=== PATIENT | female | born 1995 | race Caucasian/White ===

== ENCOUNTER 2017-07-17 23:16 | Emergency (ER) | payer OTHER ==
[~2017-07-17] VITALS: Ht 157.5 cm; Wt 120.2 kg
[2017-07-17] MEDS ORDERED: METF500 PO (23:35)
[2017-07-17] MEDS ORDERED: CLON.5 PO (23:35)
[2017-07-17] MEDS ORDERED: LAMO25 PO (23:35)
[2017-07-18] MEDS ORDERED: BENZ100A PO (00:05)
== END 2017-07-18 00:20 | disposition home or self-care (01) ==
LOC: ER 23:16
DX: J06.9 Acute upper respiratory infection, unspecified (principal); Z88.2 Allergy status to sulfonamides; Z79.899 Other long term (current) drug therapy; Z79.84 Long term (current) use of oral hypoglycemic drugs; Z86.19 Personal history of other infectious and parasitic diseases; Z87.891 Personal history of nicotine dependence
CPT/HCPCS: 94640; 99283

== ENCOUNTER → 2017-07-19 | Outpatient (CLI) | payer OTHER ==
[~2017-07-19] MED LIST: BENZ100A PO; CLON.5 PO; LAMO25 PO; METF500 PO
[2017-07-19 19:23] LABS: Specimen Source CERVIX
[2017-07-20 08:49] LABS: Source Cervix
[2017-07-22 12:30] LABS: HPV Genotype 16 Not Detected (NOTDET); HPV Genotype 18 Not Detected (NOTDET)
[2017-07-24 11:49] LABS: HPV High Risk Other Detected (NOTDET)
== END ==
LOC: LAB SHORT 17:31 → OLS 17:31
PROVIDERS: Nurse Practitioner Women's Health
DX: Z12.4 Encounter for screening for malignant neoplasm of cervix (principal); Z11.3 Encounter for screening for infections with a predominantly sexual mode of transmission; Z91.89 Other specified personal risk factors, not elsewhere classified
CPT/HCPCS: 87491; 87591; 87624; G0123

== ENCOUNTER 2017-08-12 20:42 | Observation (INO) | payer OTHER ==
[~2017-08-12] VITALS: Ht 157.5 cm; Wt 115.5 kg
[2017-08-12 21:06] LABS: BASOPHILS ABSOLUTE AUTO 0.04 K/mm3 (0.00-0.23); BASOPHILS PERCENT AUTO 1 % (0-2); EOSINOPHILS ABSOLUTE AUTO 0.05 K/mm3 (0.00-0.68); EOSINOPHILS PERCENT AUTO 1 % (0-6); Hematocrit 38.5 % (33.0-51.0); Hemoglobin 12.6 g/dL (11.5-16.0); IMMATURE GRAN ABSOLUTE AUTO 0.01 K/mm3 (0.00-0.10); IMMATURE GRAN PERCENT AUTO 0 % (0-1); LYMPHOCYTES ABSOLUTE AUTO 2.46 K/mm3 (0.84-5.20); LYMPHOCYTES PERCENT AUTO 37 % (21-46); MONOCYTES ABSOLUTE AUTO 0.51 K/mm3 (0.16-1.47); MONOCYTES PERCENT AUTO 8 % (4-13); Mean Corpuscular HGB 26.9 pg (26.0-34.0); Mean Corpuscular HGB Conc 32.7 g/dL (31.5-36.5); Mean Corpuscular Volume 82 fL (80-100); Mean Platelet Volume 9.4 fL (9.1-12.4); NEUTROPHILS ABSOLUTE AUTO 3.53 K/mm3 (1.96-9.15); NEUTROPHILS PERCENT AUTO 53 % (41-73); Platelet Count 326 K/mm3 (150-400); RDW Coefficient Variation 13.2 % (11.7-14.2); RDW Standard Deviation 39.6 fL (35.1-46.3); Red Blood Cell Count 4.68 M/mm3 (3.80-5.20)
[2017-08-12 21:25] LABS: Alanine Aminotransfer (ALT/SGP 88 U/L (12-78); Albumin, Blood 4.4 g/dL (3.4-5.0); Albumin/Globulin Ratio 1.1 (0.8-1.8); Alk Phos 101 U/L (50-136); Anion Gap 9 mmol/L (6-16); Aspartate Aminotrans (AST/SGOT 49 U/L (12-37); Beta HCG, Quantitative, Serum <1 mIU/mL (0-3); Bilirubin, Total 0.3 mg/dL (0.1-1.0); Blood Urea Nitrogen 10 mg/dL (8-24); Bun/Creatinine Ratio 13.2 (12.0-20.0); CO2, Blood 25 mmol/L (21-32); Calcium, Blood 9.1 mg/dL (8.5-10.1); Chloride, Blood 104 mmol/L (98-108); Creatinine, Blood 0.76 mg/dL (0.40-1.00); Ethanol (Alcohol), Blood, Med <3 mg/dL; Globulin, Blood 3.9 g/dL (2.2-4.0); Glomerular Filtration Rate >60 (60-); Glucose, Blood 105 mg/dL (70-99); Potassium, Blood 3.4 mmol/L (3.5-5.5); Salicylate <1.7 mg/dL (2.8-20.0); Sodium, Blood 138 mmol/L (136-145); Total Protein, Blood 8.3 g/dL (6.4-8.2)
[2017-08-12 21:28] LABS: Acetaminophen, Random <2.0 ug/mL (10.0-30.0); Thyroid Stimulating Hormone 0.561 uIU/mL (0.360-4.800)
[2017-08-12 22:40] LABS: Base Excess Venous -1.3 mmol/L; Bicarbonate Venous 23.3 mmol/L (24.0-30.0); PCO2 Venous 42.5 mmHg (38-42); PO2 Venous 79.9 mmHg (38-42); pH Blood Venous 7.36 (7.34-7.37)
[2017-08-12 23:03] LABS: Source, Urine Catheter
[2017-08-12 23:08] LABS: Bilirubin, Urine Neg (Neg); Blood, Urine Neg (Neg); Glucose Qualitative, Urine Neg (Neg); Ketones, Urine Neg (Neg); Leukocyte Esterase, Urine 1+ (Neg); Nitrite, Urine Neg (Neg); Protein, Urine Neg (Neg); Urobilinogen, Urine NORM (Normal); pH, Urine 6.5 (5.0-8.0)
[2017-08-12 23:10] LABS: Appearance, Urine Clear (Clear); Color, Urine Pale Yellow (P-Yellow)
[2017-08-12 23:19] LABS: Bacteria Rare /hpf; Red Blood Cells, Urine Not Seen /hpf (0-2); Squamous Epithelial Cells Few /hpf (Few); White Blood Cells, Urine 0-2 /hpf (0-5)
[2017-08-12 23:20] LABS: U Amphetamine Screen DETECTED; U Barbituate Screen Not Detected; U Benzodiazapine Screen Not Detected; U Buprenorphine Screen Not Detected; U Cannabinoids Screen Not Detected; U Cocaine Screen Not Detected; U Methadone Screen Not Detected; U Methamphetamine Screen DETECTED; U Opiates Screen Not Detected; U Oxycodone Screen Not Detected; U Phencyclidine Screen Not Detected; U Propoxyphene Screen Not Detected
[2017-08-14 04:10] LABS: BASOPHILS ABSOLUTE AUTO 0.03 K/mm3 (0.00-0.23); BASOPHILS PERCENT AUTO 1 % (0-2); EOSINOPHILS ABSOLUTE AUTO 0.11 K/mm3 (0.00-0.68); EOSINOPHILS PERCENT AUTO 2 % (0-6); Hematocrit 34.3 % (33.0-51.0); IMMATURE GRAN ABSOLUTE AUTO 0.01 K/mm3 (0.00-0.10); IMMATURE GRAN PERCENT AUTO 0 % (0-1); LYMPHOCYTES ABSOLUTE AUTO 3.03 K/mm3 (0.84-5.20); LYMPHOCYTES PERCENT AUTO 52 % (21-46); MONOCYTES ABSOLUTE AUTO 0.41 K/mm3 (0.16-1.47); MONOCYTES PERCENT AUTO 7 % (4-13); Mean Corpuscular HGB 26.8 pg (26.0-34.0); Mean Corpuscular HGB Conc 32.1 g/dL (31.5-36.5); Mean Corpuscular Volume 84 fL (80-100); Mean Platelet Volume 9.5 fL (9.1-12.4); NEUTROPHILS ABSOLUTE AUTO 2.24 K/mm3 (1.96-9.15); NEUTROPHILS PERCENT AUTO 38 % (41-73); Platelet Count 263 K/mm3 (150-400); RDW Coefficient Variation 13.5 % (11.7-14.2); RDW Standard Deviation 40.8 fL (35.1-46.3); Red Blood Cell Count 4.11 M/mm3 (3.80-5.20); White Blood Cell Count 5.83 K/mm3 (4.00-11.30)
[2017-08-14 04:35] LABS: Alanine Aminotransfer (ALT/SGP 55 U/L (12-78); Albumin, Blood 3.2 g/dL (3.4-5.0); Alk Phos 70 U/L (50-136); Anion Gap 6 mmol/L (6-16); Aspartate Aminotrans (AST/SGOT 20 U/L (12-37); Bilirubin, Direct <0.1 mg/dL (0.0-0.3); Bilirubin, Indirect Unable to Calculate mg/dL (0.1-0.7); Bilirubin, Total 0.3 mg/dL (0.1-1.0); Blood Urea Nitrogen 10 mg/dL (8-24); Bun/Creatinine Ratio 12.7 (12.0-20.0); CO2, Blood 25 mmol/L (21-32); Calcium, Blood 8.3 mg/dL (8.5-10.1); Chloride, Blood 111 mmol/L (98-108); Creatinine, Blood 0.79 mg/dL (0.40-1.00); Globulin, Blood 3.3 g/dL (2.2-4.0); Glomerular Filtration Rate >60 (60-); Glucose, Blood 102 mg/dL (70-99); Potassium, Blood 3.5 mmol/L (3.5-5.5); Sodium, Blood 142 mmol/L (136-145); Total Protein, Blood 6.5 g/dL (6.4-8.2)
[2017-08-14 07:40] LABS: Source, Urine Clean Catch
[2017-08-14 07:44] LABS: Bilirubin, Urine Neg (Neg); Blood, Urine 1+ (Neg); Glucose Qualitative, Urine Neg (Neg); Ketones, Urine Neg (Neg); Leukocyte Esterase, Urine 1+ (Neg); Nitrite, Urine Neg (Neg); Protein, Urine Neg (Neg); Specific Gravity, Urine 1.025 (1.003-1.022); Urobilinogen, Urine NORM (Normal)
[2017-08-14 07:49] LABS: Appearance, Urine Clear (Clear); Color, Urine Yellow (P-Yellow)
[2017-08-14 07:51] LABS: Red Blood Cells, Urine 0-2 /hpf (0-2); White Blood Cells, Urine 0-2 /hpf (0-5)
[2017-08-14 07:52] LABS: Bacteria Not Seen /hpf; Mucus Light (0-Heavy); Squamous Epithelial Cells Rare /hpf (Few)
== END 2017-08-14 20:09 | disposition home or self-care (01) ==
LOC: ER 20:42 → ERHOLD 20:43 → ICUE 23:58 → MEDS 08-14 17:21
PROVIDERS: Emergency Medicine; Family Medicine
DX: T42.6X2A Poisoning by other antiepileptic and sedative-hypnotic drugs, intentional self-harm, initial encounter (principal); G93.40 Encephalopathy, unspecified; F15.10 Other stimulant abuse, uncomplicated; E66.01 Morbid (severe) obesity due to excess calories; R33.9 Retention of urine, unspecified; R41.82 Altered mental status, unspecified; Z88.2 Allergy status to sulfonamides; Z79.84 Long term (current) use of oral hypoglycemic drugs; Z68.42 Body mass index [BMI] 45.0-49.9, adult; Z79.01 Long term (current) use of anticoagulants
CPT/HCPCS: 36415; 51702; 80048; 80053; 80076; 81001; 82803; 84443; 84702; 85025; 87086; 93005; 93010; 96360; 96361; 96372; 99285; G0378; G0480; J1650; J7030; P9612

== ENCOUNTER → 2017-09-24 | Outpatient (CLI) | payer OTHER ==
[2017-09-24 16:09] LABS: BASOPHILS ABSOLUTE AUTO 0.02 K/mm3 (0.00-0.23); BASOPHILS PERCENT AUTO 0 % (0-2); EOSINOPHILS ABSOLUTE AUTO 0.08 K/mm3 (0.00-0.68); EOSINOPHILS PERCENT AUTO 1 % (0-6); Hemoglobin 12.3 g/dL (11.5-16.0); IMMATURE GRAN ABSOLUTE AUTO 0.01 K/mm3 (0.00-0.10); IMMATURE GRAN PERCENT AUTO 0 % (0-1); LYMPHOCYTES ABSOLUTE AUTO 2.94 K/mm3 (0.84-5.20); LYMPHOCYTES PERCENT AUTO 40 % (21-46); MONOCYTES PERCENT AUTO 7 % (4-13); Mean Corpuscular HGB 26.6 pg (26.0-34.0); Mean Corpuscular HGB Conc 32.4 g/dL (31.5-36.5); Mean Corpuscular Volume 82 fL (80-100); Mean Platelet Volume 9.5 fL (9.1-12.4); NEUTROPHILS ABSOLUTE AUTO 3.74 K/mm3 (1.96-9.15); NEUTROPHILS PERCENT AUTO 51 % (41-73); Platelet Count 288 K/mm3 (150-400); RDW Coefficient Variation 14.4 % (11.7-14.2); RDW Standard Deviation 42.4 fL (35.1-46.3); Red Blood Cell Count 4.62 M/mm3 (3.80-5.20); White Blood Cell Count 7.29 K/mm3 (4.00-11.30)
[2017-09-24 16:18] LABS: Alanine Aminotransfer (ALT/SGP 23 U/L (12-78); Albumin, Blood 3.9 g/dL (3.4-5.0); Alk Phos 79 U/L (40-126); Anion Gap 7 mmol/L (6-16); Aspartate Aminotrans (AST/SGOT 14 U/L (12-37); Bilirubin, Total 0.2 mg/dL (0.1-1.0); Blood Urea Nitrogen 16 mg/dL (8-24); Bun/Creatinine Ratio 16.3 (12.0-20.0); CO2, Blood 28 mmol/L (21-32); Chloride, Blood 103 mmol/L (98-108); Creatinine, Blood 0.98 mg/dL (0.40-1.00); Glomerular Filtration Rate >60 (60-); Glucose, Blood 85 mg/dL (70-99); Potassium, Blood 4.2 mmol/L (3.5-5.5); Sodium, Blood 138 mmol/L (136-145); Total Protein, Blood 7.9 g/dL (6.4-8.2)
== END ==
LOC: LAB SHORT 16:04 → LAB EV 16:04
PROVIDERS: Physician Assistant Surgical
DX: R10.9 Unspecified abdominal pain (principal)
CPT/HCPCS: 80053; 85025

== ENCOUNTER → 2017-10-07 | Outpatient (CLI) | payer OTHER ==
[2017-10-08 11:03] LABS: Candida species (DNA Probe) Negative (NEGATIVE); G. vaginalis (DNA Probe) Positive (NEGATIVE); T. vaginalis (DNA Probe) Negative (NEGATIVE)
== END ==
LOC: LAB SHORT 15:26 → OLS 15:26
PROVIDERS: Nurse Practitioner Women's Health
DX: N89.8 Other specified noninflammatory disorders of vagina (principal)
CPT/HCPCS: 87070; 87205; 87480; 87510; 87660

== ENCOUNTER → 2018-04-29 | Outpatient (CLI) | payer OTHER ==
[2018-04-29 12:48] LABS: Source, Urine Clean Catch
[2018-04-29 13:01] LABS: Bilirubin, Urine Neg (Neg); Blood, Urine Neg (Neg); Glucose Qualitative, Urine Neg (Neg); Ketones, Urine Neg (Neg); Leukocyte Esterase, Urine 1+ (Neg); Nitrite, Urine Neg (Neg); Protein, Urine 1+ (Neg); Specific Gravity, Urine 1.015 (1.003-1.022); Urobilinogen, Urine NORM (Normal)
[2018-04-29 13:33] LABS: Color, Urine Yellow (P-Yellow)
[2018-04-29 13:36] LABS: Appearance, Urine Hazy (Clear); Bacteria Few /hpf; Red Blood Cells, Urine 0-2 /hpf (0-2); Squamous Epithelial Cells Few /hpf (Few)
== END | disposition home or self-care (01) ==
LOC: LAB SHORT 12:47 → LAB 12:47
PROVIDERS: Obstetrics & Gynecology Gynecology
DX: R30.0 Dysuria (principal)
CPT/HCPCS: 81001; 87086

== ENCOUNTER 2018-06-22 03:42 | Emergency (ER) | payer OTHER ==
[~2018-06-22] VITALS: Ht 157.5 cm; Wt 104.3 kg
[2018-06-22] MEDS ORDERED: TRAZ50 PO (04:05)
[2018-06-22 04:25] LABS: BASOPHILS ABSOLUTE AUTO 0.03 K/mm3 (0.00-0.23); BASOPHILS PERCENT AUTO 0 % (0-2); EOSINOPHILS ABSOLUTE AUTO 0.01 K/mm3 (0.00-0.68); EOSINOPHILS PERCENT AUTO 0 % (0-6); Hematocrit 38.3 % (33.0-51.0); Hemoglobin 12.9 g/dL (11.5-16.0); IMMATURE GRAN ABSOLUTE AUTO 0.02 K/mm3 (0.00-0.10); IMMATURE GRAN PERCENT AUTO 0 % (0-1); LYMPHOCYTES ABSOLUTE AUTO 1.41 K/mm3 (0.84-5.20); LYMPHOCYTES PERCENT AUTO 17 % (21-46); MONOCYTES ABSOLUTE AUTO 0.26 K/mm3 (0.16-1.47); MONOCYTES PERCENT AUTO 3 % (4-13); Mean Corpuscular HGB 29.3 pg (26.0-34.0); Mean Corpuscular HGB Conc 33.7 g/dL (31.5-36.5); Mean Corpuscular Volume 87 fL (80-100); Mean Platelet Volume 9.2 fL (9.1-12.4); NEUTROPHILS ABSOLUTE AUTO 6.52 K/mm3 (1.96-9.15); NEUTROPHILS PERCENT AUTO 79 % (41-73); Platelet Count 258 K/mm3 (150-400); RDW Coefficient Variation 12.7 % (11.7-14.2); RDW Standard Deviation 40.1 fL (35.1-46.3); Red Blood Cell Count 4.41 M/mm3 (3.80-5.20); White Blood Cell Count 8.25 K/mm3 (4.00-11.30)
[2018-06-22 04:38] LABS: Alanine Aminotransfer (ALT/SGP 22 U/L (12-78); Alk Phos 61 U/L (50-136); Anion Gap 10 mmol/L (6-16); Aspartate Aminotrans (AST/SGOT 14 U/L (12-37); Bilirubin, Total 0.4 mg/dL (0.1-1.0); Blood Urea Nitrogen 13 mg/dL (8-24); Bun/Creatinine Ratio 18.7 (12.0-20.0); CO2, Blood 25 mmol/L (21-32); Calcium, Blood 9.1 mg/dL (8.5-10.1); Chloride, Blood 103 mmol/L (98-108); Glomerular Filtration Rate >60 (60-); Glucose, Blood 143 mg/dL (70-99); Potassium, Blood 3.4 mmol/L (3.5-5.5); Sodium, Blood 138 mmol/L (136-145)
[2018-06-22 05:47] LABS: Source, Urine Clean Catch
[2018-06-22 05:53] LABS: Bilirubin, Urine Neg (Neg); Blood, Urine Neg (Neg); Glucose Qualitative, Urine Neg (Neg); Ketones, Urine Neg (Neg); Leukocyte Esterase, Urine Neg (Neg); Nitrite, Urine Neg (Neg); Protein, Urine Neg (Neg); Urobilinogen, Urine NORM (Normal); pH, Urine 6.5 (5.0-8.0)
[2018-06-22 06:00] LABS: Appearance, Urine Clear (Clear); Color, Urine Yellow (P-Yellow)
[2018-06-25] MEDS ORDERED: CHLO25B PO (14:02)
[2018-06-25] MEDS ORDERED: METF500C PO (14:03)
[2018-06-25] MEDS ORDERED: Adipex-P37.5 M1 PO (14:03)
[2018-06-25] MEDS ORDERED: PRAZ2 PO (14:04)
[2018-06-25] MEDS ORDERED: ATOM40 PO (14:04)
[2018-06-25] MEDS ORDERED: Prazosin HCl2 MG PO (14:05)
[2018-06-25] MEDS ORDERED: IRON18 MG PO (14:07)
[2018-06-25] MEDS ORDERED: LATUDA20 MG PO (14:07)
[2018-06-26] MEDS ORDERED: HYDR1TAB94 PO (08:06)
[2018-06-26] MEDS ORDERED: LATUDA20 MG PO (08:07)
== END 2018-06-22 06:37 | disposition home or self-care (01) ==
LOC: ER 03:42
PROVIDERS: Emergency Medicine
DX: R10.84 Generalized abdominal pain (principal); Z88.2 Allergy status to sulfonamides; Z79.899 Other long term (current) drug therapy; Z87.891 Personal history of nicotine dependence
CPT/HCPCS: 36415; 74176; 80053; 81003; 83690; 85025; 96361; 96374; 96375; 99284-25; J1885; J2405; J7030

== ENCOUNTER → 2018-07-19 | Outpatient (CLI) | payer OTHER ==
[~2018-07-19] MED LIST changes: +ATOM40 PO; +Adipex-P37.5 M1 PO; +CHLO25B PO; +HYDR1TAB94 PO; +IRON18 MG PO; +LATUDA20 MG PO; +METF500C PO; +PRAZ2 PO; +Prazosin HCl2 MG PO; +TRAZ50 PO
== END | disposition home or self-care (01) ==
LOC: LAB SHORT 18:25 → LAB 18:25
DX: N89.8 Other specified noninflammatory disorders of vagina (principal)
CPT/HCPCS: 87070; 87205

== ENCOUNTER → 2018-10-31 | Outpatient (CLI) | payer OTHER ==
[2018-11-03 01:08] LABS: CHLAMYDIA TRACHOMATIS, NAA Negative (Negative); NEISSERIA GONORRHOEAE, NAA Negative (Negative)
== END | disposition home or self-care (01) ==
LOC: LAB 17:30 → LAB SHORT 17:30
PROVIDERS: Nurse Practitioner Women's Health
DX: N89.8 Other specified noninflammatory disorders of vagina (principal); Z20.2 Contact with and (suspected) exposure to infections with a predominantly sexual mode of transmission
CPT/HCPCS: 87070; 87205; 87491; 87591

== ENCOUNTER 2019-04-16 16:37 | Emergency (ER) | payer OTHER ==
[~2019-04-16] VITALS: Ht 157.5 cm; Wt 96.2 kg
[~2019-04-16 16:37] MED LIST changes: +OXCA150 PO
[2019-04-16 17:20] LABS: Source, Urine Clean Catch
[2019-04-16 17:26] LABS: Appearance, Urine Hazy (Clear); Bilirubin, Urine Neg (Neg); Blood, Urine 1+ (Neg); Color, Urine Yellow (P-Yellow); Glucose Qualitative, Urine Neg (Neg); Ketones, Urine Neg (Neg); Leukocyte Esterase, Urine 2+ (Neg); Nitrite, Urine Neg (Neg); Protein, Urine Neg (Neg); Urobilinogen, Urine NORM (Normal)
[2019-04-16 17:38] LABS: Amorphous Light (0-Heavy); Bacteria Mod /hpf; Red Blood Cells, Urine 0-2 /hpf (0-2); Squamous Epithelial Cells Mod /hpf (Few)
[2019-04-16 18:46] LABS: BASOPHILS ABSOLUTE AUTO 0.01 K/mm3 (0.00-0.23); BASOPHILS PERCENT AUTO 0 % (0-2); EOSINOPHILS ABSOLUTE AUTO 0.02 K/mm3 (0.00-0.68); EOSINOPHILS PERCENT AUTO 0 % (0-6); Hematocrit 33.7 % (33.0-51.0); IMMATURE GRAN ABSOLUTE AUTO 0.02 K/mm3 (0.00-0.10); IMMATURE GRAN PERCENT AUTO 0 % (0-1); LYMPHOCYTES ABSOLUTE AUTO 2.77 K/mm3 (0.84-5.20); LYMPHOCYTES PERCENT AUTO 37 % (21-46); MONOCYTES ABSOLUTE AUTO 0.57 K/mm3 (0.16-1.47); MONOCYTES PERCENT AUTO 8 % (4-13); Mean Corpuscular HGB Conc 32.6 g/dL (31.5-36.5); Mean Platelet Volume 9.6 fL (9.1-12.4); NEUTROPHILS ABSOLUTE AUTO 4.04 K/mm3 (1.96-9.15); NEUTROPHILS PERCENT AUTO 54 % (41-73); Platelet Count 232 K/mm3 (150-400); RDW Coefficient Variation 12.2 % (11.7-14.2); RDW Standard Deviation 40.5 fL (35.1-46.3); Red Blood Cell Count 3.67 M/mm3 (3.80-5.20); White Blood Cell Count 7.43 K/mm3 (4.00-11.30)
[2019-04-16 18:49] LABS: Mean Corpuscular Volume 92 fL (80-100)
[2019-04-16 19:08] LABS: Anion Gap 4 mmol/L (6-16); Blood Urea Nitrogen 12 mg/dL (8-24); Bun/Creatinine Ratio 21.3 (12.0-20.0); CO2, Blood 28 mmol/L (21-32); Calcium, Blood 8.7 mg/dL (8.5-10.1); Chloride, Blood 105 mmol/L (98-108); Creatinine, Blood 0.56 mg/dL (0.40-1.00); Glomerular Filtration Rate >60 (60-); Glucose, Blood 90 mg/dL (70-99); Potassium, Blood 3.5 mmol/L (3.5-5.5); Sodium, Blood 137 mmol/L (136-145)
[2019-04-16 19:22] LABS: Beta HCG, Quantitative, Serum 25977 mIU/mL (0-3)
[2019-04-16] MEDS ORDERED: Oxcarbazepine300 MG PO (19:44)
== END 2019-04-16 19:57 | disposition home or self-care (01) ==
LOC: ER 16:37
PROVIDERS: Emergency Medicine; Physician Assistant
DX: O99.89 Other specified diseases and conditions complicating pregnancy, childbirth and the puerperium (principal); R10.31 Right lower quadrant pain; Z88.2 Allergy status to sulfonamides; Z87.891 Personal history of nicotine dependence; Z3A.01 Less than 8 weeks gestation of pregnancy
CPT/HCPCS: 36415; 76801; 76817; 80048; 81001; 81025; 84702; 85025; 87086; 99284-25

== ENCOUNTER → 2019-05-04 | Outpatient (CLI) | payer OTHER ==
[~2019-05-04] MED LIST changes: +Oxcarbazepine300 MG PO
[2019-05-04 13:53] LABS: Bilirubin, Urine Neg (Neg); Blood, Urine Neg (Neg); Glucose Qualitative, Urine Neg (Neg); Ketones, Urine Neg (Neg); Leukocyte Esterase, Urine Neg (Neg); Nitrite, Urine Neg (Neg); Protein, Urine Neg (Neg); Specific Gravity, Urine 1.015 (1.003-1.022); Urobilinogen, Urine NORM (Normal)
[2019-05-04 13:59] LABS: Color, Urine Yellow (P-Yellow)
[2019-05-04 14:00] LABS: Appearance, Urine Clear (Clear)
[2019-05-04 14:07] LABS: U Amphetamine Screen Not Detected; U Barbituate Screen Not Detected; U Benzodiazapine Screen Not Detected; U Cannabinoids Screen Not Detected; U Cocaine Screen Not Detected; U Methadone Screen Not Detected; U Methamphetamine Screen Not Detected; U Opiates Screen Not Detected; U Phencyclidine Screen Not Detected
[2019-05-04 14:08] LABS: U Buprenorphine Screen DETECTED; U Oxycodone Screen Not Detected; U Propoxyphene Screen Not Detected
[2019-05-16 01:06] LABS: AMITRIPTYLINE Positive (.); AMITRIPTYLINE CONF 208 ng/mL (Cutoff=100); CLOMIPRAMINE Negative (Cutoff=100); CYCLOBENZAPRINE Negative (Cutoff=100); DESIPRAMINE Negative (Cutoff=100); DOXEPIN Negative (Cutoff=100); IMIPRAMINE Negative (Cutoff=100); NORDOXEPIN Negative (Cutoff=100); NORTRIPTYLINE Negative (Cutoff=100); PROTRIPTYLINE Negative (Cutoff=100); TRICYCLIC ANTIDEP Positive ng/mL (Cutoff=100); TRIMIPRAMINE Negative (Cutoff=100)
== END | disposition home or self-care (01) ==
LOC: LAB SHORT 10:10 → LAB 10:10
PROVIDERS: Obstetrics & Gynecology
DX: Z34.81 Encounter for supervision of other normal pregnancy, first trimester (principal)
CPT/HCPCS: 81003; 87086; G0480; G0481

== ENCOUNTER → 2019-05-16 | Outpatient (CLI) | payer OTHER ==
[2019-05-19 02:06] LABS: CHLAMYDIA TRACHOMATIS, NAA Negative (Negative); NEISSERIA GONORRHOEAE, NAA Negative (Negative)
== END | disposition home or self-care (01) ==
LOC: LAB SHORT 11:15 → LAB 11:15
PROVIDERS: Obstetrics & Gynecology
DX: Z34.01 Encounter for supervision of normal first pregnancy, first trimester (principal)
CPT/HCPCS: 87491; 87591

== ENCOUNTER 2019-06-22 09:38 | Emergency (ER) | payer OTHER ==
[~2019-06-22] VITALS: Ht 157.5 cm; Wt 104.3 kg
[2019-06-22 11:11] LABS: Source, Urine Clean Catch
[2019-06-22 11:16] LABS: Bilirubin, Urine Neg (Neg); Blood, Urine Neg (Neg); Glucose Qualitative, Urine Neg (Neg); Ketones, Urine Neg (Neg); Leukocyte Esterase, Urine 1+ (Neg); Nitrite, Urine Neg (Neg); Protein, Urine Neg (Neg); Specific Gravity, Urine 1.015 (1.003-1.022); Urobilinogen, Urine NORM (Normal); pH, Urine 6.5 (5.0-8.0)
[2019-06-22 11:17] LABS: BASOPHILS ABSOLUTE AUTO 0.01 K/mm3 (0.00-0.23); BASOPHILS PERCENT AUTO 0 % (0-2); EOSINOPHILS ABSOLUTE AUTO 0.03 K/mm3 (0.00-0.68); EOSINOPHILS PERCENT AUTO 0 % (0-6); Hemoglobin 13.2 g/dL (11.5-16.0); IMMATURE GRAN ABSOLUTE AUTO 0.03 K/mm3 (0.00-0.10); IMMATURE GRAN PERCENT AUTO 0 % (0-1); LYMPHOCYTES ABSOLUTE AUTO 0.71 K/mm3 (0.84-5.20); LYMPHOCYTES PERCENT AUTO 7 % (21-46); MONOCYTES ABSOLUTE AUTO 0.32 K/mm3 (0.16-1.47); MONOCYTES PERCENT AUTO 3 % (4-13); Mean Corpuscular HGB 29.6 pg (26.0-34.0); Mean Corpuscular HGB Conc 33.8 g/dL (31.5-36.5); Mean Corpuscular Volume 87 fL (80-100); Mean Platelet Volume 9.4 fL (9.1-12.4); NEUTROPHILS ABSOLUTE AUTO 9.61 K/mm3 (1.96-9.15); NEUTROPHILS PERCENT AUTO 90 % (41-73); Platelet Count 221 K/mm3 (150-400); RDW Coefficient Variation 12.2 % (11.7-14.2); RDW Standard Deviation 39.2 fL (35.1-46.3); Red Blood Cell Count 4.46 M/mm3 (3.80-5.20); White Blood Cell Count 10.71 K/mm3 (4.00-11.30)
[2019-06-22 11:33] LABS: Appearance, Urine Hazy (Clear); Bacteria Rare /hpf; Color, Urine Yellow (P-Yellow); Red Blood Cells, Urine Rare /hpf (0-2); Squamous Epithelial Cells Mod /hpf (Few)
[2019-06-22 11:34] LABS: Anion Gap 5 mmol/L (6-16); Blood Urea Nitrogen 11 mg/dL (8-24); Bun/Creatinine Ratio 28.6 (12.0-20.0); CO2, Blood 25 mmol/L (21-32); Calcium, Blood 8.8 mg/dL (8.5-10.1); Chloride, Blood 105 mmol/L (98-108); Creatinine, Blood 0.39 mg/dL (0.40-1.00); Glomerular Filtration Rate >60 (60-); Glucose, Blood 101 mg/dL (70-99); Potassium, Blood 3.8 mmol/L (3.5-5.5); Sodium, Blood 135 mmol/L (136-145)
[2019-06-22] MEDS ORDERED: ONDA4ODT MM (12:39)
[2019-06-22] MEDS ORDERED: BUPRENORPHINE HC8 MG SL (12:40)
[2019-06-22] MEDS ORDERED: ASPIR 8181 M1 PO (12:40)
[2019-06-22] MEDS ORDERED: PROZAC20 MG PO (12:40)
[2019-06-22] MEDS ORDERED: METR500 PO (12:41)
[2019-06-22] MEDS ORDERED: TRAZ100 PO (12:41)
[2019-06-22] MEDS ORDERED: PRENATAL VITAM1 EAC1 PO (12:41)
[2019-06-22] MEDS ORDERED: BUSP5 PO (12:41)
[2019-06-22] MEDS ORDERED: BUSP10 PO (12:41)
== END 2019-06-22 13:22 | disposition home or self-care (01) ==
LOC: ER 09:38
PROVIDERS: Physician Assistant
DX: O21.9 Vomiting of pregnancy, unspecified (principal); Z88.2 Allergy status to sulfonamides; Z79.899 Other long term (current) drug therapy; O99.342 Other mental disorders complicating pregnancy, second trimester; F41.9 Anxiety disorder, unspecified; Z87.891 Personal history of nicotine dependence; Z3A.16 16 weeks gestation of pregnancy
CPT/HCPCS: 36415; 80048; 81001; 83690; 85025; 87086; 96361; 96374; 99283-25; J2405; J7030

== ENCOUNTER → 2019-08-25 | Outpatient (CLI) | payer OTHER ==
[~2019-08-25] MED LIST changes: +ASPIR 8181 M1 PO; +BUPRENORPHINE HC8 MG SL; +BUSP10 PO; +BUSP5 PO; +METR500 PO; +ONDA4ODT MM; +PRENATAL VITAM1 EAC1 PO; +PROZAC20 MG PO; +TRAZ100 PO
== END | disposition home or self-care (01) ==
LOC: LAB 09:35 → LAB SHORT 09:35
DX: F11.20 Opioid dependence, uncomplicated (principal)
CPT/HCPCS: G0480

== ENCOUNTER → 2019-11-06 | Outpatient (CLI) | payer OTHER ==
[~2019-11-06] MED LIST changes: +GABA300 PO; +Percocet 5-3251 EACH; +Prozac20 MG PO
[2019-11-07 09:46] LABS: Candida species (DNA Probe) Negative (NEGATIVE); G. vaginalis (DNA Probe) Negative (NEGATIVE); T. vaginalis (DNA Probe) Negative (NEGATIVE)
== END | disposition home or self-care (01) ==
LOC: LAB SHORT 18:09 → LAB 18:09
PROVIDERS: Obstetrics & Gynecology
DX: O23.593 Infection of other part of genital tract in pregnancy, third trimester (principal); N76.0 Acute vaginitis
CPT/HCPCS: 87081; 87480; 87510; 87653; 87660

== ENCOUNTER 2019-11-20 15:52 | Inpatient (IN) | payer OTHER ==
[~2019-11-20] VITALS: Ht 157.5 cm; Wt 104.0 kg
[~2019-11-20 15:52] MED LIST changes: -Percocet 5-3251 EACH
[2019-11-23 06:49] LABS: BASOPHILS ABSOLUTE AUTO 0.03 K/mm3 (0.00-0.23); BASOPHILS PERCENT AUTO 0 % (0-2); EOSINOPHILS ABSOLUTE AUTO 0.08 K/mm3 (0.00-0.68); EOSINOPHILS PERCENT AUTO 1 % (0-6); Hematocrit 35.1 % (33.0-51.0); Hemoglobin 11.6 g/dL (11.5-16.0); IMMATURE GRAN ABSOLUTE AUTO 0.04 K/mm3 (0.00-0.10); IMMATURE GRAN PERCENT AUTO 1 % (0-1); LYMPHOCYTES ABSOLUTE AUTO 3.02 K/mm3 (0.84-5.20); LYMPHOCYTES PERCENT AUTO 40 % (21-46); MONOCYTES ABSOLUTE AUTO 0.57 K/mm3 (0.16-1.47); MONOCYTES PERCENT AUTO 8 % (4-13); Mean Corpuscular HGB 28.4 pg (26.0-34.0); Mean Corpuscular Volume 86 fL (80-100); Mean Platelet Volume 10.6 fL (9.1-12.4); NEUTROPHILS PERCENT AUTO 50 % (41-73); Platelet Count 223 K/mm3 (150-400); RDW Coefficient Variation 13.7 % (11.7-14.2); RDW Standard Deviation 42.2 fL (35.1-46.3); Red Blood Cell Count 4.09 M/mm3 (3.80-5.20); White Blood Cell Count 7.54 K/mm3 (4.00-11.30)
[2019-11-23 06:57] LABS: U Amphetamine Screen Not Detected; U Barbituate Screen Not Detected; U Benzodiazapine Screen Not Detected; U Buprenorphine Screen DETECTED; U Cannabinoids Screen Not Detected; U Cocaine Screen Not Detected; U Methadone Screen Not Detected; U Methamphetamine Screen Not Detected; U Opiates Screen Not Detected; U Oxycodone Screen Not Detected; U Phencyclidine Screen Not Detected; U Propoxyphene Screen Not Detected
[2019-11-23 07:03] LABS: Alanine Aminotransfer (ALT/SGP 18 U/L (12-78); Albumin, Blood 2.5 g/dL (3.4-5.0); Albumin/Globulin Ratio 0.6 (0.8-1.8); Alk Phos 181 U/L (50-136); Anion Gap 9 mmol/L (6-16); Aspartate Aminotrans (AST/SGOT 18 U/L (12-37); Bilirubin, Total 0.3 mg/dL (0.1-1.0); Blood Urea Nitrogen 12 mg/dL (8-24); Bun/Creatinine Ratio 21.7 (12.0-20.0); CO2, Blood 20 mmol/L (21-32); Calcium, Blood 8.4 mg/dL (8.5-10.1); Chloride, Blood 108 mmol/L (98-108); Creatinine, Blood 0.55 mg/dL (0.40-1.00); Globulin, Blood 4.1 g/dL (2.2-4.0); Glomerular Filtration Rate >60 (60-); Glucose, Blood 90 mg/dL (70-99); Potassium, Blood 3.6 mmol/L (3.5-5.5); Sodium, Blood 137 mmol/L (136-145); Total Protein, Blood 6.6 g/dL (6.4-8.2)
--- NOTE | 2019-11-23 08:13 | NUR ---
11/23/19 0813 Kristen Chowdhury DELIVERY OF VIABLE FEMALE INFANT, WEIGHT 7 LBS 10 OUNCES. 9/9 APGARS. PLACENTA REMOVED MANUALLY, COMPLETE, AND SENT TO PATHOLOGY PER DR. SAUCEDA. CORD BLOOD SAMPLE COLLECTED FOR BLOODY TYPE AND CORD SEGMENT COLLECTED FOR DRUG SCREEN. BOTH GIVEN TO Irineo VANCE RN, BABY'S NURSE.
--- NOTE | 2019-11-23 16:04 | NUR ---
report to jennifer ramsey
[2019-11-24 05:29] LABS: Hemoglobin 10.5 g/dL (11.5-16.0); Mean Corpuscular HGB 28.5 pg (26.0-34.0); Mean Corpuscular HGB Conc 32.8 g/dL (31.5-36.5); Mean Corpuscular Volume 87 fL (80-100); Mean Platelet Volume 10.4 fL (9.1-12.4); Platelet Count 196 K/mm3 (150-400); RDW Coefficient Variation 13.7 % (11.7-14.2); RDW Standard Deviation 43.1 fL (35.1-46.3); Red Blood Cell Count 3.68 M/mm3 (3.80-5.20); White Blood Cell Count 9.83 K/mm3 (4.00-11.30)
--- NOTE | 2019-11-24 13:54 | NUR ---
1310-SBAR FROM Valdemar FORBES RN ASSUMED CARE OF PT AT THIS TIME
--- NOTE | 2019-11-25 00:11 | NUR ---
PT REFUSING VS AT THIS TIME
--- NOTE | 2019-11-25 07:49 | NUR ---
0730-ENTERED ROOM TO FIND PT ASLEEP IN BED WITH NB IN HER ARMS. AWOKE PT AND RE-EDUCATED HER ABOUT SAFE SLEEP PRACTICES AND THE DANGERS OF CO-SLEEPING. PT VERBALIZES UNDERSTANDING, STATES "I DIDN'T MEAN TO FALL ASLEEP WITH HER." NB SWADDLED AND PLACED IN CRIB AT PT BEDSIDE.
--- NOTE | 2019-11-25 11:15 | NUR ---
1110-IN ROOM TO ROUND ON PT. PT REPORTS NB JUST FINISHED 20 MINUTES AT THE BREAST AND SHE IS NOW GOING TO GIVE HER A BOTTLE. ASKED PT ABOUT FEED START TIME AND ENCOURAGED PT TO USE FEEDING LOG TO KEEP TRACK OF FEEDS. PT VERBALIZES UNDERSTANDING.
--- NOTE | 2019-11-25 18:22 | NUR ---
MOTHER OF MAC ENCOURAGED TO TRACK NB FEEDS/VOIDS/STOOLS USING THE FEEDING LOG IN THE ROOM. MOTHER STATES SHE WILL START WRITING DOWN FEEDS/VOIDS/STOOLS BUT THEN FAILS TO FOLLOW THROUGH WITH WRITING THEM DOWN AFTER MULTIPLE REMINDERS. MOTHER HAS ALTERNATED WITH AND BOTTLE FEEDING TODAY. MOTHER OF MAC STATES TO THIS PARTS REMOVER THAT SHE IS NOT 100% SURE OF FATHER'S PATERNITY, AND INQUIRES IF HE CAN STILL BE ON THE CERTIFICATE. THIS PARTS REMOVER ADVISES MOTHER OF MAC THAT SINCE SHE IS NOT SURE OF FATHER'S PATERNITY THAT PATERNITY WILL NEED TO BE ESTABLISHED BEFORE FATHER CAN BE ON THE CERTIFICATE. MOTHER OF MAC STATES, "WELL SINCE CHILD WELFARE IS INVOLVED I AM JUST TRYING TO GO BY WHAT I KNOW. AND THAT IS IF THEY TAKE THE BABY INTO CUSTODY THEY HAVE TO REACH OUT TO WHOEVER IS ON THE CERTIFICATE SO THAT WOULD BE HIM AND HIS FAMILY." THIS PARTS REMOVER AGAIN EDUCATED MOTHER OF MAC THAT SINCE SHE IS UNSURE OF FATHER'S PATERNITY THAT PATERNITY WOULD NEED TO BE ESTABLISHED BEFORE THE FATHER CAN BE ADDED TO THE CERTIFICATE. MOTHER SUZANNE WATTS VERBALIZES UNDERSTANDING.
[2019-11-26] MEDS ORDERED: Percocet 5-3251 EACH (14:46)
[2019-11-30 02:11] LABS: HEPATITIS C QUANTITATION HCV Not Detected IU/mL (.)
== END 2019-11-26 15:00 | disposition home or self-care (01) | DRG 787 ==
LOC: BC 11-23 05:51
PROVIDERS: ADMIT Obstetrics & Gynecology
PROC: 10D00Z1 Extraction of Products of Conception, Low, Open Approach (ICD-10-PCS; principal; 2019-11-23 07:30)
DX: O34.211 Maternal care for low transverse scar from previous cesarean delivery (principal); O99.324 Drug use complicating childbirth; O98.42 Viral hepatitis complicating childbirth; O24.425 Gestational diabetes mellitus in childbirth, controlled by oral hypoglycemic drugs; O99.214 Obesity complicating childbirth; E66.9 Obesity, unspecified; F19.10 Other psychoactive substance abuse, uncomplicated; B18.2 Chronic viral hepatitis C; Z3A.39 39 weeks gestation of pregnancy; Z37.0 Single live birth; Z01.812 Encounter for preprocedural laboratory examination; Z11.59 Encounter for screening for other viral diseases
CPT/HCPCS: 36415; 80053; 82947; 85025; 85027; 86592; 86850; 86900; 86901; 87522; 88307; G0480; J0690; J1885; J2405; J2590; J2765; J7120; U0003

== ENCOUNTER 2020-08-10 17:14 | Emergency (ER) | payer OTHER ==
[~2020-08-10] VITALS: Ht 157.5 cm; Wt 95.2 kg
[~2020-08-10 17:14] MED LIST changes: +Percocet 5-3251 EACH
[2020-08-10] MEDS ORDERED: AMOCLA875 PO (18:18)
== END 2020-08-10 18:27 | disposition home or self-care (01) ==
LOC: ER 17:14
DX: K08.89 Other specified disorders of teeth and supporting structures (principal); Z88.2 Allergy status to sulfonamides; Z79.899 Other long term (current) drug therapy
CPT/HCPCS: 99282

== ENCOUNTER → 2020-12-12 | Outpatient (CLI) | payer OTHER ==
[~2020-12-12] MED LIST changes: +AMOCLA875 PO
[2020-12-22 08:10] LABS: 6-ACETYLMORPHINE Not Detected (.)
== END ==
LOC: LAB SHORT 12:45 → LAB 12:45
PROVIDERS: Physician Assistant
DX: F11.20 Opioid dependence, uncomplicated (principal); Z88.2 Allergy status to sulfonamides
CPT/HCPCS: G0480

== ENCOUNTER 2021-06-03 00:54 | Emergency (ER) | payer OTHER ==
[~2021-06-03] VITALS: Ht 157.5 cm; Wt 81.7 kg
[2021-06-03] MEDS ORDERED: IBU600 MG PO (01:56)
[2021-06-03] MEDS ORDERED: CYCL10 PO (01:56)
== END 2021-06-03 02:00 | disposition home or self-care (01) ==
LOC: ER 00:54
DX: S46.912A Strain of unspecified muscle, fascia and tendon at shoulder and upper arm level, left arm, initial encounter (principal); Z88.2 Allergy status to sulfonamides; W01.0XXA Fall on same level from slipping, tripping and stumbling without subsequent striking against object, initial encounter
CPT/HCPCS: 72040; 73030; 99283-25; A9270

== ENCOUNTER 2022-01-18 11:42 | Emergency (ER) | payer OTHER ==
[~2022-01-18] VITALS: Ht 157.5 cm; Wt 90.7 kg
[~2022-01-18 11:42] MED LIST changes: +CYCL10 PO; +IBU600 MG PO
[2022-01-18] MEDS ORDERED: BUPRENORPHIN-N1 EAC1 SL (12:49)
== END 2022-01-18 14:08 | disposition home or self-care (01) ==
LOC: ER 11:42
DX: S09.90XA Unspecified injury of head, initial encounter (principal); S16.1XXA Strain of muscle, fascia and tendon at neck level, initial encounter; S40.011A Contusion of right shoulder, initial encounter; V89.2XXA Person injured in unspecified motor-vehicle accident, traffic, initial encounter; Z88.2 Allergy status to sulfonamides
CPT/HCPCS: 70450; 72125; 73030

== ENCOUNTER 2022-02-07 07:39 | Emergency (ER) | payer OTHER ==
[~2022-02-07] VITALS: Ht 157.5 cm; Wt 104.3 kg
[~2022-02-07 07:39] MED LIST changes: +BUPRENORPHIN-N1 EAC1 SL
[2022-02-07] MEDS ORDERED: Cyclobenzaprine5 MG PO (09:17)
== END 2022-02-07 09:53 | disposition home or self-care (01) ==
LOC: ER 07:39
DX: G44.309 Post-traumatic headache, unspecified, not intractable (principal); F07.81 Postconcussional syndrome; F17.210 Nicotine dependence, cigarettes, uncomplicated; Z88.2 Allergy status to sulfonamides; Z79.899 Other long term (current) drug therapy
CPT/HCPCS: 81025; 99283; A9270; J1200; J2765

== ENCOUNTER 2023-04-30 14:57 | Emergency (ER) | payer OTHER ==
[~2023-04-30] VITALS: Ht 157.5 cm; Wt 104.3 kg
[~2023-04-30 14:57] MED LIST changes: +Cyclobenzaprine5 MG PO
[2023-04-30 15:22] VITALS: BP 138/69
[2023-04-30 17:14] LABS: Source, Urine Clean Catch
[2023-04-30 17:30] LABS: Appearance, Urine Hazy (Clear); Bilirubin, Urine Neg (Neg); Blood, Urine Neg (Neg); Color, Urine Yellow (P-Yellow); Glucose Qualitative, Urine Neg (Neg); Ketones, Urine Neg (Neg); Leukocyte Esterase, Urine Neg (Neg); Nitrite, Urine Neg (Neg); Protein, Urine Neg (Neg); Specific Gravity, Urine 1.025 (1.003-1.022); Urobilinogen, Urine NORM (Normal)
[2023-04-30 17:43] LABS: Amorphous Light (0-Heavy); Bacteria Many /hpf; Red Blood Cells, Urine 0-2 /hpf (0-2); Squamous Epithelial Cells Mod /hpf (Few); White Blood Cells, Urine 0-2 /hpf (0-5)
== END 2023-04-30 17:27 | disposition home or self-care (01) ==
LOC: ER 14:57
PROVIDERS: Physician Assistant
DX: O99.891 Other specified diseases and conditions complicating pregnancy (principal); R10.31 Right lower quadrant pain; O99.331 Smoking (tobacco) complicating pregnancy, first trimester; F17.210 Nicotine dependence, cigarettes, uncomplicated; Z3A.11 11 weeks gestation of pregnancy; Z79.899 Other long term (current) drug therapy; Z88.2 Allergy status to sulfonamides
CPT/HCPCS: 76801; 76817; 81001; 81025; 84702; 99284-25

== ENCOUNTER 2023-05-21 11:23 | Emergency (ER) | payer OTHER ==
[~2023-05-21] VITALS: Ht 162.6 cm; Wt 81.7 kg
[2023-05-21 13:00] VITALS: BP 113/86
[2023-05-21] MEDS ORDERED: NARCAN4 M1 (13:14)
[2023-05-21] MEDS ORDERED: BUPRENORPHIN-N1 EAC1 SL (13:14)
[2023-05-21] MEDS ORDERED: ONDA4ODT MM (13:14)
== END 2023-05-21 13:26 | disposition home or self-care (01) ==
LOC: ER 11:23
DX: T40.411A Poisoning by fentanyl or fentanyl analogs, accidental (unintentional), initial encounter (principal); R11.0 Nausea; F17.210 Nicotine dependence, cigarettes, uncomplicated; Z88.2 Allergy status to sulfonamides
CPT/HCPCS: 82947; 93005; 93010; 99284-25; A9270; J2405

== ENCOUNTER 2023-07-03 18:14 | Emergency (ER) | payer OTHER ==
[~2023-07-03] VITALS: Ht 157.5 cm; Wt 90.7 kg
[~2023-07-03 18:14] MED LIST changes: +NARCAN4 M1
[2023-07-03 19:32] LABS: Source, Urine Clean Catch
[2023-07-03 19:36] LABS: Appearance, Urine Clear (Clear); Bilirubin, Urine Neg (Neg); Blood, Urine Neg (Neg); Color, Urine Yellow (P-Yellow); Glucose Qualitative, Urine 3+ (Neg); Ketones, Urine Neg (Neg); Leukocyte Esterase, Urine Neg (Neg); Nitrite, Urine Neg (Neg); Protein, Urine Neg (Neg); Urobilinogen, Urine NORM (Normal); pH, Urine 6.5 (5.0-8.0)
[2023-07-03 19:47] LABS: U Amphetamine Screen DETECTED; U Barbituate Screen Not Detected; U Benzodiazapine Screen Not Detected; U Buprenorphine Screen Not Detected; U Cannabinoids Screen Not Detected; U Cocaine Screen Not Detected; U Methadone Screen Not Detected; U Methamphetamine Screen DETECTED; U Opiates Screen Not Detected; U Oxycodone Screen Not Detected; U Phencyclidine Screen Not Detected
[2023-07-03 20:00] VITALS: BP 107/89
[2023-07-03 20:08] LABS: BASOPHILS ABSOLUTE AUTO 0.01 K/mm3 (0.00-0.23); BASOPHILS PERCENT AUTO 0 % (0-2); EOSINOPHILS PERCENT AUTO 0 % (0-6); IMMATURE GRAN ABSOLUTE AUTO 0.02 K/mm3 (0.00-0.10); IMMATURE GRAN PERCENT AUTO 0 % (0-1); LYMPHOCYTES ABSOLUTE AUTO 0.61 K/mm3 (0.84-5.20); LYMPHOCYTES PERCENT AUTO 8 % (21-46); MONOCYTES ABSOLUTE AUTO 0.44 K/mm3 (0.16-1.47); MONOCYTES PERCENT AUTO 6 % (4-13); Mean Corpuscular HGB 29.8 pg (26.0-34.0); Mean Corpuscular HGB Conc 34.3 g/dL (31.5-36.5); Mean Corpuscular Volume 87 fL (80-100); Mean Platelet Volume 9.5 fL (9.1-12.4); NEUTROPHILS ABSOLUTE AUTO 6.53 K/mm3 (1.96-9.15); NEUTROPHILS PERCENT AUTO 86 % (41-73); Platelet Count 252 K/mm3 (150-400); RDW Coefficient Variation 13.2 % (11.7-14.2); RDW Standard Deviation 41.1 fL (35.1-46.3); Red Blood Cell Count 4.03 M/mm3 (3.80-5.20); White Blood Cell Count 7.61 K/mm3 (4.00-11.30)
[2023-07-03 20:25] LABS: Albumin/Globulin Ratio 0.7 (0.8-1.8); Bilirubin, Total 0.3 mg/dL (0.1-1.0); Bun/Creatinine Ratio 7.2 (12.0-20.0); Calcium, Blood 8.7 mg/dL (8.5-10.1); Creatinine, Blood 0.56 mg/dL (0.40-1.00); Globulin, Blood 4.1 g/dL (2.2-4.0); Potassium, Blood 3.5 mmol/L (3.5-5.5); Total Protein, Blood 7.1 g/dL (6.4-8.2)
== END 2023-07-03 20:20 | disposition left against medical advice (07) ==
LOC: ER 18:14
PROVIDERS: Emergency Medicine
DX: O9A.212 Injury, poisoning and certain other consequences of external causes complicating pregnancy, second trimester (principal); T40.412A Poisoning by fentanyl or fentanyl analogs, intentional self-harm, initial encounter; O99.322 Drug use complicating pregnancy, second trimester; F15.10 Other stimulant abuse, uncomplicated; O99.342 Other mental disorders complicating pregnancy, second trimester; F41.8 Other specified anxiety disorders; O99.332 Smoking (tobacco) complicating pregnancy, second trimester; F17.210 Nicotine dependence, cigarettes, uncomplicated; Z79.899 Other long term (current) drug therapy; Z88.2 Allergy status to sulfonamides; Z3A.20 20 weeks gestation of pregnancy
CPT/HCPCS: 80053; 81003; 85025; 99285

== ENCOUNTER 2023-10-30 17:37 | Inpatient (IN) | payer OTHER ==
[~2023-10-30] VITALS: Ht 160 cm; Wt 100.0 kg
[2023-10-30] VITALS (12 sets, daily range): BP systolic 116–135; BP diastolic 67–94
[2023-10-30] MEDS ORDERED: CeFAZolin Sodium 2,000 MG in NS 100 ML IV SCH (17:40)
[2023-10-30] MEDS ORDERED: METH40 PO (17:45)
[2023-10-30] MEDS ORDERED: Metoclopramide HCl 5MG / ML 2ML Vial IV ONE (17:45)
[2023-10-30] MEDS ORDERED: Citric Acid/Sodium Citrate 30 ML BTL PO ONE (17:45)
[2023-10-30] MEDS ORDERED: Ampicillin Sod 2,000 MG in NS 100 ML IV ONE (17:45)
[2023-10-30] MEDS ORDERED: GABA100 PO (17:46)
[2023-10-30] MEDS ORDERED: PRENATAL TABLE1 EAC2 PO (17:46)
[2023-10-30] MEDS ORDERED: TRAZ50 PO (17:47)
[2023-10-30] MEDS ORDERED: Lactated Ringer's 1,000 ML IV ONE (17:48)
[2023-10-30 18:06] LABS: BASOPHILS ABSOLUTE AUTO 0.02 K/mm3 (0.00-0.23); BASOPHILS PERCENT AUTO 0 % (0-2); EOSINOPHILS ABSOLUTE AUTO 0.01 K/mm3 (0.00-0.68); EOSINOPHILS PERCENT AUTO 0 % (0-6); Hematocrit 32.9 % (33.0-51.0); Hemoglobin 10.6 g/dL (11.5-16.0); IMMATURE GRAN ABSOLUTE AUTO 0.15 K/mm3 (0.00-0.10); IMMATURE GRAN PERCENT AUTO 2 % (0-1); LYMPHOCYTES ABSOLUTE AUTO 2.16 K/mm3 (0.84-5.20); LYMPHOCYTES PERCENT AUTO 24 % (21-46); MONOCYTES ABSOLUTE AUTO 0.51 K/mm3 (0.16-1.47); MONOCYTES PERCENT AUTO 6 % (4-13); Mean Corpuscular HGB 26.6 pg (26.0-34.0); Mean Corpuscular HGB Conc 32.2 g/dL (31.5-36.5); Mean Corpuscular Volume 83 fL (80-100); Mean Platelet Volume 10.9 fL (9.1-12.4); NEUTROPHILS ABSOLUTE AUTO 6.01 K/mm3 (1.96-9.15); NEUTROPHILS PERCENT AUTO 68 % (41-73); NRBC ABSOLUTE 0.05 K/mm3 (0.00-0.02); NRBC Auto 0.6 /100 WBC (0.0-0.2); Platelet Count 267 K/mm3 (150-400); RDW Coefficient Variation 14.4 % (11.7-14.2); RDW Standard Deviation 41.1 fL (35.1-46.3); Red Blood Cell Count 3.99 M/mm3 (3.80-5.20); White Blood Cell Count 8.86 K/mm3 (4.00-11.30)
[2023-10-30] MEDS ORDERED: Oxytocin 10 Unit / ML Vial ONE ×2 (18:10)
[2023-10-30] MEDS ORDERED: Bupivacaine 0.75%/Dext 8.25% 2 ML Amp IT ONE (18:10)
--- NOTE | 2023-10-30 19:04 | NUR ---
not able to discuss discharge planning on admission... will let oncoming rn know to follow up with these questions
[2023-10-30 19:12] LABS: U Amphetamine Screen Not Detected; U Barbituate Screen Not Detected; U Benzodiazapine Screen Not Detected; U Buprenorphine Screen Not Detected; U Cannabinoids Screen Not Detected; U Cocaine Screen Not Detected; U Methadone Screen DETECTED; U Methamphetamine Screen Not Detected; U Opiates Screen Not Detected; U Oxycodone Screen Not Detected; U Phencyclidine Screen Not Detected
[2023-10-30] MEDS ORDERED: ePHEDrine Sulfate 50 MG/ML 1ML Injection ONE (19:16)
[2023-10-30] MEDS ORDERED: FentaNYL Citrate 50 MCG/ML 2 ML Injection IV PRN (20:00)
[2023-10-30] MEDS ORDERED: HYDROmorphone HCl/Pf 1MG SYR IV PRN ×2 (20:00)
[2023-10-30] MEDS ORDERED: Dexamethasone Sodium Phosphate 4 MG/ML 5ML VIAL IV PRN (20:00)
[2023-10-30] MEDS ORDERED: Ondansetron HCl 2 MG / ML 2ML Vial IV PRN ×2 (20:05→20:20)
[2023-10-30] MEDS ORDERED: Albuterol 2.5 MG/3 ML VIAL INH PRN (20:05)
[2023-10-30] MEDS ORDERED: Prochlorperazine Edisylate 10 mg Vial IV PRN (20:05)
[2023-10-30] MEDS ORDERED: Rho(D) Immune Globulin 300 MCG / SYR IM ONE (20:15)
[2023-10-30] MEDS ORDERED: LR Oxytocin 20 Units 1,000 ML IV SCH (20:15)
[2023-10-30] MEDS ORDERED: Simethicone 80 MG Chew PO PRN (20:15)
[2023-10-30] MEDS ORDERED: Lactated Ringer's 1,000 ML IV SCH (20:15)
--- NOTE | 2023-10-30 20:15 | NUR ---
10/30/232014 Jocy Akins BABY BOY BORN 1930 CORD BLOOD SENT WITH FAMILY NURSE. CORD SEGMENT SENT WITH RT RODAS. DR ALBERT DID NOT WANT PLACENTA SENT A SPECIMEN.
[2023-10-30] MEDS ORDERED: Acetaminophen 500 MG Tab PO PRN (20:20)
[2023-10-30] MEDS ORDERED: DiphenhydrAMINE HCL 25 MG Cap PO PRN (20:20)
[2023-10-30] MEDS ORDERED: Carboprost Tromethamine 250 MCG/ML 1ML Amp IM PRN (20:20)
[2023-10-30] MEDS ORDERED: Ketorolac Tromethamine 15mg Vial IV PRN (20:20)
[2023-10-30 20:23] LABS: PCO2 Cord - Venous 45.5 mmHg (40-50); PO2 Cord - Venous 27.1 mmHg (28-32); pH Umbilical Cord - Venous 7.33 (7.26-7.35)
[2023-10-30] MEDS ORDERED: Meperidine HCl 50 MG/ML 1ML Injection IV PRN (20:25)
[2023-10-30] MEDS ORDERED: Measles/Mumps/Rubella Vaccine 0.5 ML Vial SC ONE (20:25)
[2023-10-30] MEDS ORDERED: Lanolin Cream TOP PRN (20:40)
[2023-10-30] MEDS ORDERED: Methylergonovine Maleate 0.2 MG Tab PO PRN (20:40)
[2023-10-30] MEDS ORDERED: Diphth,Pertuss(Acell),Tet Vac 0.5 ML VIAL IM ONE (20:45)
[2023-10-30] MEDS ORDERED: Ketorolac Tromethamine 30mg Vial IV SCH (21:00)
[2023-10-30] MEDS ORDERED: Docusate Sodium 100 MG Cap PO SCH (21:00)
[2023-10-30] MEDS ORDERED: Methadone HCL 10 MG TAB PO SCH (21:00)
[2023-10-30] MEDS ORDERED: Methadone HCL 5 MG TAB PO SCH (21:00)
[2023-10-31] VITALS (8 sets, daily range): BP systolic 109–141; BP diastolic 56–77
[2023-10-31] MEDS ORDERED: Ibuprofen 400 MG Tab PO SCH
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
--- NOTE | 2023-10-31 05:30 | NUR ---
PT MADE COMMENT TO THIS RN "I STILL DONT THINK ITS RIGHT THAT I CANT BREASTFEED. I'M GOING TO WHEN I GO HOME".
--- NOTE | 2023-10-31 05:45 | NUR ---
PT TAKEN TO NURSERY VIA WHEELCHAIR TO SEE INFANT.
[2023-10-31 05:59] LABS: BASOPHILS ABSOLUTE AUTO 0.03 K/mm3 (0.00-0.23); BASOPHILS PERCENT AUTO 0 % (0-2); EOSINOPHILS PERCENT AUTO 0 % (0-6); Hematocrit 30.9 % (33.0-51.0); Hemoglobin 9.9 g/dL (11.5-16.0); IMMATURE GRAN PERCENT AUTO 1 % (0-1); LYMPHOCYTES ABSOLUTE AUTO 2.06 K/mm3 (0.84-5.20); LYMPHOCYTES PERCENT AUTO 21 % (21-46); MONOCYTES ABSOLUTE AUTO 0.49 K/mm3 (0.16-1.47); MONOCYTES PERCENT AUTO 5 % (4-13); Mean Corpuscular HGB 26.4 pg (26.0-34.0); Mean Corpuscular Volume 82 fL (80-100); Mean Platelet Volume 10.6 fL (9.1-12.4); NEUTROPHILS ABSOLUTE AUTO 7.29 K/mm3 (1.96-9.15); NEUTROPHILS PERCENT AUTO 73 % (41-73); Platelet Count 258 K/mm3 (150-400); RDW Coefficient Variation 14.6 % (11.7-14.2); RDW Standard Deviation 41.1 fL (35.1-46.3); Red Blood Cell Count 3.75 M/mm3 (3.80-5.20); White Blood Cell Count 9.97 K/mm3 (4.00-11.30)
[2023-10-31] MEDS ORDERED: HYDROmorphone HCl/Pf 1MG SYR IV SCH (06:20)
--- NOTE | 2023-10-31 08:08 | NUR ---
REPORT RECEIVED FROM RILEY WEBBER FOR DAYSHIFT. UPON ASSESSMENT AND VITAL SIGNS AT 0720, PT STATING SHE STILL DOES NOT UNDERSTAND WHY SHE IS NOT ABLE TO BREASTFEED. PT EDUCATED ON NB BEING POSITIVE FOR OPIATES AND WITHDRAWING, NEEDING MORPHINE AT THIS TIME. EDUCATED PT HOW A MATURE AND IMMATURE LIVER PROCESSES MEDICATIONS/DRUGS. EDUCATED PT WE ARE HERE TO SUPPORT HER AND KEEP HER SAFE BUT NB IS ALSO OUR PT TO SUPPORT AND KEEP SAFE. AT THIS TIME, IS NOT RECOMMENDED. PT STATES DR. WINCHESTER IN LAST NIGHT AND EXPLAINED WHY IS NOT RECOMMENDED AT THIS TIME WELL. PT STILL STATES SHE DOESN'T UNDERSTAND WHY SHE IS NOT ABLE TO BREASTFEED. WILL ASK ASTRONAUT MISSION SPECIALIST TO SPEAK TO PT AGAIN.
[2023-10-31] MEDS ORDERED: Prenatal Vit/FE Fumarate/FA 1 Tab PO SCH (09:00)
--- NOTE | 2023-10-31 11:26 | NUR ---
[facility]PS CASEWORKERS HERE TO SEE PT. PT WAS AWOKEN OUT OF SLEEP AND DID NOT REALIZE THEY WOULD BE COMING TODAY. THIS RN TOLD HER YESTERDAY BEFORE THAT THEY WOULD BE CALLED. PT DIDN'T REALIZE THEY CAME ON THE WEEKEND. ENEIDA CLARK ANDJAIRO LOCKWOOD AT BEDSIDE DURING THIS TIME. PT AGITATED AND STATED SHE THOUGHT SHE HAD TIME TO PREPARE FOR THEM. PT TOLD THEM SHE DIDN'T WANT TO SPEAK TO THEM WITHOUT HER SUPPORT PERSON, SAIDA, BEING PRESENT. CASEWORKERS GAVE PT THEIR CARDS AND REQUESTED SHE CALL THEM TO COME BACK TO TALK WHEN SAIDA WAS PRESENT. PT AGREED.
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
[2023-10-31] MEDS ORDERED: Fluconazole 100 MG Tab PO ONE ×3 (18:30→19:20)
[2023-10-31] MEDS ORDERED: Magnesium Hydroxide Conc 10 ML UDC PO PRN (18:55)
[2023-11-01 04:24] VITALS: BP 102/50
[2023-11-01 08:50] VITALS: BP 117/71
[2023-11-01 11:41] VITALS: BP 113/59
--- NOTE | 2023-11-01 12:15 | NUR ---
PT UPDATED ON HER ABILITY TO CONTINUE TO COME VISIT IF SHE CHOSES TO RETURN TO INPATIENT REHAB. PT AWARE SHE WOULD BE ABLE TO VISIT UNSUPERVISED FROM CPS UNTIL THEY REMOVE . PT ENCOURAGED TO CONTINUE WITH INPATIENT REHAB TREATMENT
[2023-11-01] MEDS ORDERED: IBUP800 PO (16:06)
[2023-11-01] MEDS ORDERED: ACET325 PO (16:07)
[2023-11-01] MEDS ORDERED: DOCU100 PO (16:07)
--- NOTE | 2023-11-01 16:08 | NUR ---
1600: PT HAS BEEN OUTSIDE SINCE 1500. PT REPORTED SHE WAS GOING TO THE CAR TO DROP OFF A BAG AND GET A BRA. CPS HERE TO SEE PT. SAIDA WAS CALLED TO SEE WHERE PT IS. SAIDA AND PT REPORT THEY WENT TO THE STORE TO GET CLOTHES AND THAT THEY WOULD BE BACK IN THE ROOM IN 5 MIN. CPS WORKERS ONEIDA DOOLEY AND JUAN F FISCHER HERE TO TALK WITH PT.
[2023-11-01 17:50] VITALS: BP 118/63
--- NOTE | 2023-11-01 17:54 | NUR ---
1730: PLAN IS FOR PT TO STAY AT [facility] ON BOARDER STATUS. PT TO ASSIST WITH NB CARE. PT TO GO TO [facility] FOR METHADONE DOSING. PT ENCOURAGED TO BE IN COMMUNICATION [facility] NURSERY NURSE ON WHEN FEEDS ARE SO SHE CAN ASSIST WITH FEEDS. PT ENCOURAGED TO GO IN AND HOLD NB OFTEN POSSIBLE. TO COMMUNICATE WITH NB'S RN ON WHEN SHE WILL BE LEAVING FOR CLASSES OR TO GO GET METHADONE. PT INFORMED THAT ONLY SHE IS ALLOWED TO GO IN AND SEE NB SINCE SHE IS THE PARENT. UNLESS A PREFORM MACHINE OPERATOR BECOMES INVOLVED THEN THAT PERSON WOULD BE ABLE TO GO IN A VISITOR ALSO. PT'S SUPPORT PERSON, SAIDA, PRESENT FOR ALL OF THIS CONVERSATION. BOTH VERBALIZE UNDERSTANDING. PLAN TO GIVE EVENING DOSES OF MEDS AND PT TO MOVE TO BOARDER STATUS.
--- NOTE | 2023-11-01 18:52 | NUR ---
1835: PT HAS BEEN ENCOURAGED TO COMPLETE PAPERWORK SINCE 1700. PAPERWORK STILL NOT DONE. PT DID READ THROUGH D/C INSTRUCTIONS AND SIGNED D/C INSTRUCTIONS. DISCUSSED WITH PT. PT HAS NOT FINISHED PP DEPRESSION ASSEESSMENT. PT STATES SHE WANTS TO GO TO [place] PRIOR TO THEM CLOSING SO PT OUT OF ROOM PRIOR TO D/C OR PAPERWORK BEING DONE SO SHE CAN GET FOOD. PT ACCOMPANIED BY SAIDA. DISCUSSED WITH Anna Marie PATEL CNM. WAITING FOR PT TO R/T [facility]. REPORT TO ONCOMING SHIFT.
[2023-11-01 19:47] VITALS: BP 113/57
[2023-11-02 00:02] VITALS: BP 116/60
--- NOTE | 2023-11-02 04:40 | NUR ---
WENT IN TO PATIENTS ROOM TO TAKE AM VITALS AND FOUND PT ASLEEP ON TOILET. PT DID NOT INITIALLY WAKE UP TO ME SAYING HER NAME TILL I HAD SAID IT 3 TIMES.
[2023-11-02 04:55] VITALS: BP 107/55
--- NOTE | 2023-11-02 05:27 | NUR ---
PT ENCOURAGED TO FINISH PAPER WORK. PT HAS NOT YET BEEN DC'D. PLAN IF FOR PT TO DC TO BOARDER STATUS AFTER AM DOSE OF METHADONE.
[2023-11-02 08:59] VITALS: BP 111/71
--- NOTE | 2023-11-02 09:55 | NUR ---
CPS NOTE SHOBHA DONALD, WORKER WHO IS ASSIGNED TO OTHER CHILD IN SYSTEM, HERE TO VISIT WITH
[2023-11-02] MEDS ORDERED: Methadone HCL 10 MG TAB PO ONE (10:10)
--- NOTE | 2023-11-02 11:08 | NUR ---
CPS SPOKE WITH JOHANA MERCADO, CURRENT ASSIGNED EVP CHIEF EXPLORATION OFFICER, REGARDING MOTHER BEING DISCHARGED TO BOARDER STATUS. HE DOES NOT NEED TO SPEAK WITH OR VISIT HER PRIOR TO D/C.
[2023-11-02 11:57] VITALS: BP 113/76
--- NOTE | 2023-11-02 12:00 | NUR ---
No acute changes this am. Pt reports she has her prescriptions as needed and all other needs. Declines additional teaching, meds or other needs prior to being discharged to boarder status. Verbalized understanding of boarder status and that she needs to be going to see nb in nursery while still in hospital. pt d/c'd to boarder status.
[2023-11-03 11:43] LABS: EDDP,URN,QUANT SEE SEPARATE REPORT; METHADONE,URN,QUANT SEE SEPARATE REPORT
== END 2023-11-02 12:00 | disposition home or self-care (01) | DRG 787 ==
LOC: OBS 17:37 → BC 17:45
PROVIDERS: Advanced Practice Midwife; Obstetrics & Gynecology; ADMIT Registered Nurse Community Health
PROC: 10D00Z1 Extraction of Products of Conception, Low, Open Approach (ICD-10-PCS; principal; 2023-10-30 17:15)
DX: O42.02 Full-term premature rupture of membranes, onset of labor within 24 hours of rupture (principal); O99.324 Drug use complicating childbirth; O34.211 Maternal care for low transverse scar from previous cesarean delivery; Z37.0 Single live birth; O99.344 Other mental disorders complicating childbirth; F41.9 Anxiety disorder, unspecified; F32.A Depression, unspecified; Z3A.37 37 weeks gestation of pregnancy; Z88.2 Allergy status to sulfonamides; O99.893 Other specified diseases and conditions complicating puerperium; R73.03 Prediabetes; F11.10 Opioid abuse, uncomplicated; O77.0 Labor and delivery complicated by meconium in amniotic fluid; Z90.49 Acquired absence of other specified parts of digestive tract; Z79.899 Other long term (current) drug therapy; O99.334 Smoking (tobacco) complicating childbirth; F17.200 Nicotine dependence, unspecified, uncomplicated
CPT/HCPCS: 36415; 82803; 82947; 85025; 86850; 86900; 86901; 86923; A9270; G0480; J0290; J0690; J1170; J1885; J2405; J2590; J2765; J7120

== ENCOUNTER 2024-02-17 14:11 | Emergency (ER) | payer OTHER ==
[~2024-02-17] VITALS: Ht 170.2 cm; Wt 99.8 kg
[~2024-02-17 14:11] MED LIST changes: +ACET325 PO; +DOCU100 PO; +GABA100 PO; +IBUP800 PO; +METH40 PO; +PRENATAL TABLE1 EAC2 PO
[2024-02-17 14:27] VITALS: BP 150/81
[2024-02-17] MEDS ORDERED: Methadone HCL 10 MG TAB PO ONE (15:10)
== END 2024-02-17 15:35 | disposition home or self-care (01) ==
LOC: ER 14:11
DX: F11.90 Opioid use, unspecified, uncomplicated (principal); Z76.0 Encounter for issue of repeat prescription; F17.210 Nicotine dependence, cigarettes, uncomplicated; Z79.899 Other long term (current) drug therapy; Z88.2 Allergy status to sulfonamides
CPT/HCPCS: 93005; 93010; 99283-25; A9270

== ENCOUNTER 2024-02-18 11:21 | Emergency (ER) | payer OTHER ==
[~2024-02-18] VITALS: Ht 157.5 cm; Wt 90.7 kg
[2024-02-18 11:33] VITALS: BP 135/95
[2024-02-18] MEDS ORDERED: Methadone HCL 10 MG TAB PO ONE (11:35)
== END 2024-02-18 11:48 | disposition home or self-care (01) ==
LOC: ER 11:21
DX: F11.90 Opioid use, unspecified, uncomplicated (principal); Z76.0 Encounter for issue of repeat prescription; F17.210 Nicotine dependence, cigarettes, uncomplicated; Z79.899 Other long term (current) drug therapy; Z88.2 Allergy status to sulfonamides
CPT/HCPCS: 99281; A9270

== ENCOUNTER 2024-09-09 07:31 | Emergency (ER) | payer OTHER ==
[~2024-09-09] VITALS: Ht 172.7 cm; Wt 108.9 kg
[2024-09-09 07:35] VITALS: BP 132/110
[2024-09-09] MEDS ORDERED: CloNIDine 0.1 MG Tab PO ONE (08:00)
[2024-09-09] MEDS ORDERED: Ondansetron 4 MG SoluTab SL ONE (08:00)
== END 2024-09-09 08:08 ==
LOC: ER 07:31
DX: F11.93 Opioid use, unspecified with withdrawal (principal); F17.200 Nicotine dependence, unspecified, uncomplicated
CPT/HCPCS: 99283; A9270

== ENCOUNTER 2024-11-20 00:29 | Emergency (ER) | payer OTHER ==
[~2024-11-20] VITALS: Ht 157.5 cm; Wt 90.7 kg
[2024-11-20] MEDS ORDERED: AMOCLA875 PO (05:22)
[2024-11-20 05:37] VITALS: BP 135/88
[2024-11-20] MEDS ORDERED: Diflucan150 MG PO (05:38)
== END 2024-11-20 05:38 | disposition home or self-care (01) ==
LOC: ER 00:29
DX: L03.115 Cellulitis of right lower limb (principal); F17.210 Nicotine dependence, cigarettes, uncomplicated; Z88.2 Allergy status to sulfonamides; Z79.891 Long term (current) use of opiate analgesic; Z79.899 Other long term (current) drug therapy
CPT/HCPCS: 73660; 99283-25; A9270

== ENCOUNTER 2025-04-16 18:08 | Emergency (ER) | payer OTHER ==
[~2025-04-16] VITALS: Ht 157.5 cm; Wt 81.7 kg
[~2025-04-16 18:08] MED LIST changes: +Diflucan150 MG PO
[2025-04-16] MEDS ORDERED: ERYT1OIN RIGHTEYE (21:09)
[2025-04-16] MEDS ORDERED: Erythromycin 0.5% Opth Oint 1 gm RIGHTEYE ONE (21:10)
[2025-04-16 21:15] VITALS: BP 127/81
== END 2025-04-16 21:20 | disposition home or self-care (01) ==
LOC: ER 18:08
DX: H00.011 Hordeolum externum right upper eyelid (principal); F17.210 Nicotine dependence, cigarettes, uncomplicated; Z88.2 Allergy status to sulfonamides; Z79.899 Other long term (current) drug therapy
CPT/HCPCS: 99282; A9270